=== PATIENT | female | born 2000 | race Caucasian/White ===

== ENCOUNTER 2024-05-21 08:09 | Outpatient (CLI) | payer OTHER, SELFPAY ==
[2024-05-21 09:47] LABS: HCG,Quantitative < 2 mIU/ml (0-5.42)
[2024-05-22 12:25] LABS: Progesterone <0.1 ng/mL (.)
== END 2024-05-21 23:59 | disposition home or self-care (01) ==
PROVIDERS: PCP Nurse Practitioner; Visit Provider Obstetrics & Gynecology
DX: Z34.90 Encounter for supervision of normal pregnancy, unspecified, unspecified trimester (principal)
CPT/HCPCS: 36415; 84144; 84702